=== PATIENT | male | born 1940 | race Caucasian/White ===

== ENCOUNTER 2018-05-21 12:46 | Emergency (ER) | payer OTHER ==
[~2018-05-21 12:46] MED LIST: ALPRAZOLAM0.5 M3 PO; ALPRAZOLAM0.5 M4 PO; AMLODIPINE BESYL5 M1 PO; ASPIRIN EC325 MG PO; ASPIRIN81 M4 PO; AUGMENTIN 875 M1 TAB PO; ECOTRIN81 MG PO; ESCITALOPRAM OX10 MG PO; ESCITALOPRAM10 MG PO; FEOSOL325 MG PO; FINASTERIDE5 M1 PO; FUROSEMIDE20 M1 PO; GABAPENTIN300 M2 PO; LASIX40 M1 PO; LEADER MELATONIN5 MG PO; LEVOTHYROXIN0.125 M1 PO; LEVOTHYROXINE125 MCG PO; LOSARTAN POTAS100 MG PO; LYRICA50 MG PO; MAGNESIUM OXID400 MG PO; METOPROLOL SUCC50 M2 PO; METOPROLOL TART50 MG PO; MG-200200 MG PO; MIRALAX17 GM PO; NEXIUM 40MG40 MG PO; NIASPAN1000 MG PO; NORVASC 5MG TAB5 MG PO; OXYCODONE5 MG PO; OXYCONTIN20 MG PO; POTASSIUM CHLO20 ME2 PO; PRAVASTATIN SOD40 M2 PO; PROBIOTIC FORMU1 CA1 PO; PROCHLORPERAZIN10 M1 PO; SENNA CON/DOCUS1 TAB PO; SIMVASTATIN40 MG PO; TAMSULOSIN HCL0.4 M1 PO; TAMSULOSIN HYD0.4 MG PO; TOPROL XL 25MG25 MG PO; TOPROL XL25 M1 PO; TOPROL XL25 MG PO; VITAB121000 PO; VITAMIN B122500 MC2 PO; ZOFRAN 8MG8 MG PO
[2018-05-21 12:49] VITALS: BP 164/66
--- NOTE | 2018-05-21 13:28 | ED NOSE COMPLAINT ---
History of Present Illness General Chief Complaint: Epistaxis/Nasal Foreign Body Stated Complaint: EPISTAXIS, - THINNERS Source: patient Exam Limitations: no limitations Vital Signs & Intake/Output Vital Signs & Intake/Output Vital Signs Date Time Temp Pulse Resp B/P B/P Pulse O2 O2 Flow FiO2 Mean Ox Delivery Rate 05/21 1249 97.2 57 15 164/66 92 Room Air Room Air Allergies Coded Allergies: bee venom protein (honey bee) (Intermediate, HIVES 05/21/18) iodine (Intermediate, HIVES 05/21/18) shrimp (UNKNOWN 05/21/18) Reconcile Medications Amlodipine Besylate 5 MG TABLET 1 TAB PO DAILY HTN (Reported) Aspirin (Aspirin*) 81 MG TAB.CHEW 1 TAB PO DAILY CARDIAC (Reported) Cyanocobalamin (Vitamin B-12) (Vitamin B12) 2,500 MCG TAB.CHEW 1,000 MCG PO DAILY SUPPLEMENT (Reported) Escitalopram Oxalate 10 MG TABLET 1 TAB PO DAILY MENTAL HEALTH (Reported) Ferrous Sulfate (Feosol) 325 MG (65 MG IRON) TABLET 1 TAB PO DAILY SUPPLEMENT (Reported) Finasteride 5 MG TABLET 1 TAB PO DAILY BPH (Reported) Furosemide (Lasix) 40 MG TABLET 1 TAB PO DAILY CHF . Gabapentin 300 MG CAPSULE 1 CAP PO BID MENTAL HEALTH (Reported) Levothyroxine Sodium 125 MCG TABLET 1 TAB PO DAILY THYROID (Reported) Metoprolol Succ XL (Toprol XL) 25 MG TAB 1 TAB PO DAILY HTN . Potassium Chloride 20 MEQ TAB.ER.PRT 1 TAB PO AD LASIX USE (Reported) Pravastatin Sodium 40 MG TABLET 1 TAB PO QPM HPL (Reported) Tamsulosin HCl 0.4 MG CAP.ER.24H 1 CAP PO DAILY BPH (Reported) Triage Note: PT TO ED FOR EPISTAXIS SINCE THIS MORNING. PT'S NOSE CURRENTLY PACKED IN TRIAGE. Triage Nurses Notes Reviewed? yes Onset: Abrupt Duration: minute(s):, intermittent Timing: recent history HPI: 77-year-old male comes into the emergency room with complaints of nosebleed to the left side. Patient reports he has intermittent nosebleeds. He is on aspirin. He reports that he was unable to control the nosebleed this time and he continued to bleed. He comes in for further evaluation. He denies any other associated symptoms. Denies any lightheaded or dizziness. (Jonel Walls) Past History Travel History Traveled to [place] past 21 day No Medical History Any Pertinent Medical History? see below for history Neurological: NONE EENT: NONE Cardiovascular: CAD, CHF, hypertension, hyperlipidemia, myocardial infarction, BYPASS STENTS Respiratory: NONE Gastrointestinal: NONE Hepatic: NONE Renal: ARF Musculoskeletal: NONE Psychiatric: NONE Endocrine: HYPOTHYROID Blood Disorders: NONE Cancer(s): MULTIPLE MYELOMA ENDOSCOPY TECHNICAN/Reproductive: NONE History of MRSA: No History of VRE: No History of CDIFF: No Influenza Vaccine: 05/18/15 Tetanus Vaccine: 06/08/14 Surgical History Surgical History: CABG Psychosocial History Who do you live with Spouse Services at Home None What is your primary language German Tobacco Use: Quit >30 days ago Family History Hx Contributory? No (Jonel Walls) Review of Systems Review of Systems Constitutional: Reports: no symptoms. EENTM: Reports: see HPI. Respiratory: Reports: no symptoms. Cardiovascular: Reports: no symptoms. GI: Reports: no symptoms. Genitourinary: Reports: no symptoms. Musculoskeletal: Reports: no symptoms. Skin: Reports: no symptoms. Neurological/Psychological: Reports: no symptoms. Hematologic/Endocrine: Reports: see HPI. Immunologic/Allergic: Reports: no symptoms. All Other Systems: Reviewed and Negative (Jonel Walls) Physical Exam Physical Exam General Appearance: well developed/nourished, mild distress Head: atraumatic Eyes: Bilateral: normal appearance. Nose: active bleeding, mild oozing from left nostril, anterior, Mouth/Throat: normal mouth inspection, pharynx normal Neck: normal inspection, supple Cardiovascular/Respiratory: no respiratory distress Back: normal inspection Neurologic/Psych: awake, alert, oriented x 3, normal mood/affect Skin: intact, normal color, warm/dry (Jonel Walls) Progress Differential Diagnoses I considered the following diagnoses in my evaluation of the patient: Anterior nosebleed, posterior nosebleed, blood disorder, Plan of Care: 05/21/2018 3:40:40 PM Patient clinically looks well. In no apparent distress. Nontoxic-appearing. Silver nitrate was used to cauterize the anterior nose bleed. Nosebleed completely resolved. Patient ready for discharge. Ready to go. No apparent distress. Nontoxic-appearing. Initial ED EKG: none (Jonel Walls) Departure Departure Disposition: HOME OR SELF CARE Condition: Stable Clinical Impression Primary Impression: Epistaxis Referrals: Delfino Granger MD (PCP/Family) Ajay Moreira MD Additional Instructions: Follow-up with ear nose and throat doctor. Return if any concerns worsening symptoms. Please go over all results of today's visit with your primary care doctor. Contact your primary care doctor to let them know you were here in the emergency room. There may be nonspecific findings which may not be related to your visit today here in the emergency room but may require further evaluation and chronic monitoring by your primary care doctor. If you had a laceration today the chance of foreign body always remains. You should follow-up with your primary care doctor for recheck in 3-5 days for a wound check. If you had an x-ray done there is a chance that a fracture could have been missed on initial read and you should follow-up with your primary care doctor for repeat x-rays if symptoms persist. If your blood pressure was elevated here in the emergency room please have rechecked by [facility] primary care doctor within the next 48. If you were prescribed a narcotic here in the emergency room or any type of controlled substances you're not allowed to drive while taking this medication or operate any type of heavy machinery. Narcotics can make you feel lightheaded dizziness nausea and can cause constipation. You may need to potato picker a stool softener. Thank you for choosing [facility] emergency room. Please return to the emergency room immediately if you have any other concerns worsening of symptoms. Departure Forms: Customer Survey General Discharge Information (Jonel Walls) PA/FEATHER BALER Co-Sign Statement Statement: ED Attending supervision documentation- [] I saw and evaluated the patient. I have also reviewed all the pertinent lab results and diagnostic results. I agree with the findings and the plan of care as documented in the PA's/FEATHER BALER's documentation. [x] I have reviewed the ED Record and agree with the PA's/FEATHER BALER's documentation. [] Additions or exceptions (if any) to the PAs/FEATHER BALER's note and plan are summarized below: [] (Kareem Pelaez DO)
== END 2018-05-21 13:39 ==
LOC: ERH 12:46
DX: R04.0 Epistaxis (principal); I10 Essential (primary) hypertension; I50.9 Heart failure, unspecified; I25.10 Atherosclerotic heart disease of native coronary artery without angina pectoris; Z87.891 Personal history of nicotine dependence; Z79.82 Long term (current) use of aspirin